=== PATIENT | female | born 1950 | race African-American/Black ===

== ENCOUNTER 2018-11-03 11:37 | Outpatient (CLI) | payer MEDICARE ==
[~2018-11-03 11:37] MED LIST: ACET325T14 PO; ACID1TAB3 PO; ALBU18HF INH; ASPI-515 PO; ASPI325T17 PO; CLIN300C8 PO; FERR325T18 PO; HYDR-3240 PO; HYDR-3341 PO; HYDR25TA6 PO; IBUP-1221 PO; IBUP-1484 PO; ISOS10TA2 PO; LOSA100T14 PO; METO25TA35 PO; METO25TA91 PO; METO50TA82 PO; NITR12SP2 TL; OLAN5TAB9 PO; OMEP20CA14 PO; POLY17PO5 PO; SIMV10TA3 PO; SPIR25TA PO; TIZA4TAB PO
== END 2018-11-03 23:59 | disposition home or self-care (01) ==
LOC: CFH 11:37
PROVIDERS: ATTEND Family Medicine
DX: Z12.31 Encounter for screening mammogram for malignant neoplasm of breast (principal); M85.88 Other specified disorders of bone density and structure, other site; N95.8 Other specified menopausal and perimenopausal disorders
CPT/HCPCS: 76377; 76642; 77080; 77067

== ENCOUNTER 2019-10-09 13:56 | Emergency (ER) | payer MEDICARE ==
[~2019-10-09] VITALS: Ht 152.4 cm; Wt 62.3 kg
[~2019-10-09 13:56] MED LIST changes: -IBUP-1484 PO; +IBUP-1902 PO; -OMEP20CA14 PO; +OMEP20CA20 PO; +SIMV10TA18 PO; -SIMV10TA3 PO; -TIZA4TAB PO; +TIZA4TAB2 PO
--- NOTE | 2019-10-09 15:18 | NUR ---
PT TO ROOM WITH STAFF VIA WHEELCHAIR.
--- NOTE | 2019-10-09 15:31 | NUR ---
BREAK RN: PRIMARY RN ATTEMTED IV X1 UNSUCCESSFUL. PTS DAUGHTER OSMIN AT BEDSIDE. 69 YR OLD FEMALE HERE WITH C/O "WE WERE SITTING AT THE TABLE AND WE STARTED HAVING THESE PAINS. SHE TRIED TO WALK THEM OFF AND THEY DECREASED. SHE THOUGHT SHE WAS GOING TO THROW UP, CAME OUT OF THE BR, PALE AND CLAMMY." PAIN UNDER BOTH BREAST AND GOES TO BACK. STARTED TODAY AROUND 1330. PT HAS HAD OFF AND ON FOR ABOUT [address] WALKER AT BEDSIDE TO ALICIA PT.
--- NOTE | 2019-10-09 15:58 | NUR ---
PT REQUESTING "I NEED SOME PAIN PILLS OR SOMETHING, Y'ALL GOT ME FKED UP." PT EDUCATED ON NEED FOR MD ORDER, THIS RN TO NOTIFY MD.
--- NOTE | 2019-10-09 15:58 | NUR ---
REPORT RECEIVED FROM LUNCH RN ROMAN. AT BEDSIDE. RN AT [facility] TO ATTEMPT US PIV.
[2019-10-09 16:03] LABS: BASOPHILS # (AUTO) 0.02 x10^3/uL (0-0.1); BASOPHILS % (AUTO) 0 % (0-1); EOSINOPHILS # (AUTO) 0.02 x10^3/uL (0-0.4); EOSINOPHILS % (AUTO) 0 % (1-7); LYMPHOCYTES # (AUTO) 1.41 x10^3/uL (1-3.4); LYMPHOCYTES % (AUTO) 24 % (22-44); MD NO; MEAN CORPUSCULAR HEMOGLOBIN 32.8 pg (27.0-34.8); MEAN CORPUSCULAR VOLUME 99.5 fL (80-100); MEAN PLATELET VOLUME 7.6 fL (7.4-10.4); MONOCYTES # (AUTO) 0.19 x10^3/uL (0.2-0.8); MONOCYTES % (AUTO) 3 % (2-9); NEUTROPHILS # (AUTO) 4.27 x10^3/uL (1.8-6.8); NEUTROPHILS % (AUTO) 72 % (42-75); PLATELET COUNT 228 x10^3/uL (130-400); RED BLOOD COUNT 3.24 x10^6/uL (3.82-5.3); RED CELL DISTRIBUTION WIDTH 14.6 % (9.6-15.2)
[2019-10-09 16:09] VITALS: BP 116/74
[2019-10-09 16:11] LABS: ALBUMIN 3.9 g/dL (3.4-5.0); ANION GAP 10 mmol/L (5-15); CALCIUM 7.7 mg/dL (8.5-10.1); CHLORIDE 103 mmol/L (98-107); CREATININE 1.52 mg/dL (0.55-1.02)
[2019-10-09 16:15] LABS: TROPONIN I < 0.015 ng/mL (0.000-0.045)
--- NOTE | 2019-10-09 16:36 | NUR ---
ALL RESULTS BACK AT THIS TIME, CHART UP FOR RECHECK.
--- NOTE | 2019-10-09 16:43 | NUR ---
AT BEDSIDE FOR REASSESSMENT.
[2019-10-09] MEDS ORDERED: KETOROLAC 30 MG/1 ML ONE (16:45)
--- NOTE | 2019-10-09 16:49 | NUR ---
PT MEDICATED PER ORDER.
[2019-10-09] MEDS ORDERED: KETOROLAC 30 MG/1 ML IM/IV ONE (17:00)
--- NOTE | 2019-10-09 17:04 | NUR ---
Patient/Caregiver given discharge instructions and they have confirmed that they understand the instructions. Patient ambulatory with steady gait. PIV REMOVED TIP INTACT.
== END 2019-10-09 17:05 | disposition home or self-care (01) ==
LOC: ED 16:50
DX: R07.2 Precordial pain (principal); R06.02 Shortness of breath; R11.0 Nausea; I12.9 Hypertensive chronic kidney disease with stage 1 through stage 4 chronic kidney disease, or unspecified chronic kidney disease; E11.22 Type 2 diabetes mellitus with diabetic chronic kidney disease; N18.9 Chronic kidney disease, unspecified; E78.5 Hyperlipidemia, unspecified; I25.10 Atherosclerotic heart disease of native coronary artery without angina pectoris; I25.2 Old myocardial infarction; F17.200 Nicotine dependence, unspecified, uncomplicated; Z86.73 Personal history of transient ischemic attack (TIA), and cerebral infarction without residual deficits
CPT/HCPCS: 36415; 71045; 80048; 82040; 84484; 85025; 93005; 96372; 99284; J1885

== ENCOUNTER → 2020-03-09 | Outpatient (CLI) | payer MEDICARE | END | disposition home or self-care (01) | LOC: CFH 10:02 | PROVIDERS: ATTEND Licensed Practical Nurse | DX: Z12.31 Encounter for screening mammogram for malignant neoplasm of breast (principal); Z12.2 Encounter for screening for malignant neoplasm of respiratory organs; I25.10 Atherosclerotic heart disease of native coronary artery without angina pectoris; N64.89 Other specified disorders of breast; N63.10 Unspecified lump in the right breast, unspecified quadrant; N63.20 Unspecified lump in the left breast, unspecified quadrant; F17.210 Nicotine dependence, cigarettes, uncomplicated | CPT/HCPCS: 77063; 77067; G0297 ==